=== PATIENT | male | born 1970 | race Caucasian/White ===

== ENCOUNTER 2019-07-14 20:03 | Emergency (ER) | payer OTHER, SELFPAY ==
[2019-07-14 20:07] VITALS: BP 181/108; PULSE 123; RESP 16; TEMP 36; O2SAT 100
--- NOTE | 2019-07-14 20:10 | ED.SKABFB ---
HPI - Skin/Abscess/Foreign Bdy General Chief complaint: Skin/Abscess/Foreign Body Stated complaint: abcess Time Seen by Provider: 07/14/19 20:07 Source: patient and RN notes reviewed Mode of arrival: ambulatory Limitations: no limitations History of Present Illness HPI narrative: Pt is a 49 y/o male presenting to the ED c/o wound. Pt reports he noticed a red bump on his rt thigh earlier today. Pt states he called his PCP who prescribed the pt Doxycycline. Pt notes the swelling and erythema worsened on his rt thigh as of the past few hrs. Pt states he has developed an abscess in his leg previously which worsened rapidly. Pt states he has Hx's of Pre-DM and HTN. Pt denies fever, chills, N/V, cough, congestion, rhinorrhea, or dysuria. Onset (ago): unknown (Earlier today) Location: RLE (Rt thigh) Associated symptoms: other (Rt thigh erythema; Rt thigh swelling) Related Data Home Medications Medication Instructions Recorded Confirmed testosterone 20.25 mg/1.25 gram 2 pump TOPICAL DAILY 02/26/19 (1.62 %) transdermal gel pump Allergies Allergy/AdvReac Type Severity Reaction Status Date / Time SHELLFISH Allergy Mild SWEATING, Uncoded 07/14/19 20:10 FAINT,NAUSEA. JAYDA. CONTRAST FOR CT SCAN Review of Systems Review of Systems: All systems reviewed & are unremarkable except as noted in HPI and below Constitutional: Constitutional: Denies chills and Denies fever(s) ENT: Denies nasal congestion and Denies other (Rhinorrhea) Respiratory: Respiratory: Denies cough Gastrointestinal: Gastrointestinal: Denies nausea and Denies vomiting Genitourinary: Genitourinary: Denies dysuria Integumentary/Breasts: Skin/Breast: Reports swelling (Rt thigh), Reports erythema (Rt thigh) and Reports wounds (Rt thigh) [facility] Past Medical History Medical History (Updated 07/14/19 @ 21:26 by Tin Cameron MD) Abscess Anxiety with depression Benign essential hypertension Body mass index (BMI) 40.0-44.9, adult Colon cancer screening DM type 2 (diabetes mellitus, type 2) Encounter for routine adult health examination without abnormal findings Encounter for special screening examination for neoplasm of prostate Erectile dysfunction Follow up Hyperlipidemia On longterm drug therapy CARMINE on CPAP Surgical History Surgical History (Updated 07/14/19 @ 20:18 by Irving Singleton) No significant past surgical history Social History Social History Smoking status: Never smoker Alcohol intake: never Course Vital Signs Vital signs: Vital Signs Temperature 36.0 C L 07/14/19 20:07 Pulse Rate 123 H 07/14/19 20:07 Respiratory Rate 16 07/14/19 20:07 Blood Pressure 181/108 H 07/14/19 20:07 Pulse Oximetry 100 07/14/19 20:07 Temperature 36.0 C L 07/14/19 20:07 Pulse Rate 123 H 07/14/19 20:07 Respiratory Rate 16 07/14/19 20:07 Blood Pressure 181/108 H 07/14/19 20:07 Pulse Oximetry 100 07/14/19 20:07 Procedures Abscess I/D lower extremity: Side (if applicable): right Local Anesthetic: lidocaine 1% and with epi Amount of anesthesia used (mL): 4 Amount of fluid expressed (mL): 1 Irrigation: Yes Packing used?: none I&D Results: Pus MDM - Skin/Abscess/Foreign Bdy Differential Diagnosis Differential diagnosis: Likely abscess of skin or subcutaneous tissue Medical Records Attestation: I reviewed the patient's medical records. Lab Data Attestation: I reviewed the patient's lab results. Labs: Lab Results 07/14/19 Range/Units 21:06 POC Capillary Glucose 92 (65-105) mg/dl Discharge Plan Discharge Clinical Impression: Abscess Patient Disposition: Home, Self-Care Condition: Stable Instructions: Abscess (ED) Prescriptions: No Action (DME) OneTouch Verio Strip See Rx Instructions .ROUTE .MEDSUPPLY Qty: 100 RF: 5 (DME) lancets 30 gauge misc See Rx Instructions
--- NOTE | 2019-07-14 20:33 | PC.NURSE ---
at bedside preparing for I&D of wound.
[2019-07-14] MEDS: LIDO 1%/EPINEPHRINE 1:100,000 20 ML VIAL 5 ML INFILTRATE (20:37)
[2019-07-14 21:10] LABS: Glucose Point of Care 92 (65-105)
--- NOTE | 2019-07-25 21:09 | PC.NURSE ---
LATE ENTRY This note is being entered to document information to the patient's record. The following information was omitted on [pt wound on right inner thigh not left inner thigh], by [maureen zaman rn].
== END 2019-07-14 21:40 | disposition home or self-care (01) ==
PROVIDERS: Emergency Provider Emergency Medicine; PCP Internal Medicine
DX: L02.415 Cutaneous abscess of right lower limb (principal); F41.8 Other specified anxiety disorders; I10 Essential (primary) hypertension; E11.9 Type 2 diabetes mellitus without complications; N52.9 Male erectile dysfunction, unspecified; E78.5 Hyperlipidemia, unspecified; Z79.84 Long term (current) use of oral hypoglycemic drugs
CPT/HCPCS: 10060; 99282

== ENCOUNTER 2019-09-10 14:51 | Outpatient (CLI) | payer OTHER, SELFPAY | END 2019-09-10 14:52 | disposition home or self-care (01) | LOC: ANHLAB 14:53 | PROVIDERS: PCP Internal Medicine; Visit Provider Internal Medicine | DX: L02.91 Cutaneous abscess, unspecified (principal) | CPT/HCPCS: 87081 ==

== ENCOUNTER 2021-03-04 08:39 | Outpatient (CLI) | payer OTHER, SELFPAY ==
--- NOTE | ~2021-03-04 | XR_ITS ---
EXAMINATION: XR hip RT min 2V DATE: 03/04/2021 08:58 INDICATION: Right hip pain TECHNIQUE: Two views of the right hip were obtained. COMPARISON: None. FINDINGS: Bone alignment is normal. There is no fracture. There is mild to moderate osteoarthritis of the hip. The soft tissues are unremarkable. IMPRESSION: 1. Osteoarthritis without acute osseous abnormality. Reviewed, dictated and finalized at location B. NDMAN
== END 2021-03-04 08:40 | disposition home or self-care (01) ==
LOC: ANHIMG 08:44
PROVIDERS: PCP Internal Medicine; Visit Provider Internal Medicine
DX: M16.11 Unilateral primary osteoarthritis, right hip (principal)
CPT/HCPCS: 73502

== ENCOUNTER 2022-01-10 10:08 | Outpatient (CLI) | payer OTHER, SELFPAY ==
--- NOTE | ~2022-01-10 | XR_ITS ---
EXAM: XR ankle RT min 3V, XR foot RT standing 2V DATE: 01/10/2022 10:42 HISTORY: M25.571 - Pain in right ankle and joints of right foot. NKI . COMPARISON: None available. FINDINGS: Normal mineralization. No fracture or dislocation. No lytic or blastic lesion. Moderate de generative change of the tibiotalar joint and multiple midfoot joints. Mild degenerative change at th e first MTP and first interphalangeal joint. Marked Achilles and plantar enthesopathy. Calcification in peroneal tendons. Large os cuboidium. No erosion or periosteal change. Soft tissues within normal limits. IMPRESSION: No acute osseous finding in the right ankle or foot. Degenerative changes detailed above. Reviewed, dictated and finalized at location K. IMPRESSION: No acute osseous finding in the right ankle or foot. Degenerative c hanges detailed above.
== END 2022-01-10 10:09 | disposition home or self-care (01) ==
PROVIDERS: PCP Internal Medicine; Visit Provider Internal Medicine
DX: M25.571 Pain in right ankle and joints of right foot (principal); M79.671 Pain in right foot
CPT/HCPCS: 73610; 73620

== ENCOUNTER 2023-01-25 16:11 | Emergency (ER) | payer OTHER, SELFPAY ==
[2023-01-25 16:20] VITALS: BP 137/68; PULSE 70; RESP 16; TEMP 36.7; O2SAT 98
--- NOTE | 2023-01-25 16:20 | ED.SKABFB ---
HPI - Skin/Abscess/Foreign Bdy General Chief complaint: Skin/Abscess/Foreign Body Stated complaint: Rt Inner Thigh Irritation Time Seen by Provider: 01/25/23 16:24 Source: patient and RN notes reviewed Mode of arrival: ambulatory Limitations: no limitations History of Present Illness HPI narrative: 52-year-old male presents with concern for redness on his right inner thigh. He reports history of having abscesses drained in that area. He reports he noticed these areas yesterday while traveling and 1 of them taking care of because he is going to be traveling again tomorrow. He denies fever, aches, chills, sweats. Denies drainage from the area MD complaint: abscess/boil Related Data Allergies Allergy/AdvReac Type Severity Reaction Status Date / Time SHELLFISH Allergy Mild SWEATING, Uncoded 07/14/22 07:43 FAINT,NAUSEA. JAYDA. CONTRAST FOR CT SCAN Review of Systems Review of Systems: CONSTITUTIONAL: Denies malaise, chills, sweats, or fever. EYES: Denies redness, or discharge. CARDIOVASCULAR: Denies chest pain, palpitations, or edema. RESPIRATORY: Denies cough or dyspnea. SKIN: Reports 2 red tender areas on the right inner thigh MUSCULOSKELETAL: Denies joint pain or myalgia. NEUROLOGIC: Denies headache. All systems reviewed & are unremarkable except as noted in HPI and below PMFSH Past Medical History Medical History Abnormal finding of blood chemistry Abscess Acute dysfunction of right eustachian tube Anxiety with depression Balanitis Benign essential hypertension BMI 37.0-37.9, adult BMI 38.0-38.9,adult BMI 39.0-39.9,adult Body mass index (BMI) 40.0-44.9, adult BPPV (benign paroxysmal positional vertigo) Change in mole Colon cancer screening Cough DJD (degenerative joint disease) DM type 2 (diabetes mellitus, type 2) Elbow pain, left Encounter for preventive health examination Encounter for routine adult health examination with abnormal findings Encounter for routine adult health examination without abnormal findings Erectile dysfunction Follow up Hx of colonic polyps Hyperlipidemia Hypersomnia On terminal superintendent drug therapy CARMINE on CPAP Prostate cancer screening Right foot pain SOB (shortness of breath) Stress Vitamin D deficiency Surgical History Surgical History No significant past surgical history Social History Social History Smoking status: Former smoker Second hand tobacco smoke exposure: No Alcohol intake: never Lack of Transportation: No Lack of Food: Never True Current Housing: I Have Housing Concerned About Future Housing: No Difficulty Paying Gas/Electric Bills: No Difficulty Paying for Meds: No Currently Unemployed: No Education: Master's Degree or Higher Difficulty w/ Childcare or Family Care: No Living arrangements: with family Occupation/Education: occupation Gender identity (if verbalized by the patient): Male Sexual Orientation (if Verbalized by the Patient): Straight or Heterosexual Comments At time of signature, agree with nursing past medical, surgical, social and family history. There is no relevant family history pertinent to the presenting complaint Exam Narrative: GENERAL: Well-appearing, well-nourished, and in no acute distress. HEAD: Normocephalic, atraumatic. EYES: PERRLA, conjunctivae clear, and EOMI. ENT: Mucous membranes moist. Oropharynx without edema, erythema or lesions. NECK: Supple. No lymphadenopathy CHEST: Clear to auscultation. No respiratory distress. HEART: Regular rate and rhythm. SKIN: Warm, dry. Two palpable erythematous indurated nonfluctuant raised areas noted on the right inner thigh NEURO: Alert and oriented x3. PSYCH: Normal mood and affect Course Course Emergency Course: Patient is aware of diagnosis, understands and agree
== END 2023-01-25 16:37 | disposition home or self-care (01) ==
PROVIDERS: Emergency Provider Nurse Practitioner; PCP Internal Medicine
DX: L02.425 Furuncle of right lower limb (principal); E78.5 Hyperlipidemia, unspecified; I10 Essential (primary) hypertension; E11.9 Type 2 diabetes mellitus without complications; Z87.891 Personal history of nicotine dependence
CPT/HCPCS: 99213; G0463

== ENCOUNTER 2024-01-22 08:20 | Outpatient (CLI) | payer OTHER, SELFPAY ==
--- NOTE | ~2024-01-22 | XR_ITS ---
XR wrist RT min 3V Ordering provider: Oscar Nieto MD History: . GOLF INJURY. ULNAR SIDE PAIN. . Comparison: None. FINDINGS: BONES: No acute fracture or dislocation. No definite scaphoid fracture. JOINT SPACES: Normal. SOFT TISSUES: Normal. IMPRESSION: No acute osseous abnormality right wrist. Reviewed, dictated and finalized at location A.
== END 2024-01-22 08:21 | disposition home or self-care (01) ==
LOC: ANHIMG 08:22
PROVIDERS: PCP Internal Medicine; Visit Provider Internal Medicine
DX: S69.91XA Unspecified injury of right wrist, hand and finger(s), initial encounter (principal); X58.XXXA Exposure to other specified factors, initial encounter; Y93.53 Activity, golf
CPT/HCPCS: 73110

== ENCOUNTER 2024-06-04 08:57 | Outpatient (CLI) | payer OTHER, SELFPAY ==
--- NOTE | ~2024-06-04 | XR_ITS ---
Clinical Indication: Cough PA and lateral views of the chest: Comparison: None Findings: The lungs are clear, without evidence of focal consolidation or pleural effusion. Cardiome diastinal silhouette is within normal limits. Bones and soft tissues are unremarkable. Impression: Normal chest. Reviewed, dictated and finalized at [facility]. WORKER FOREMAN Impression: Normal chest.
--- OUTSIDE RECORDS SUMMARY | 2024-06-04 09:38 | XMS_ITS ---
Author Organization [facility], [facility] Address [address] [place] [address] [address]. [address]rell [address] [place] [address] Care Team Providers Care Air Force Senior Officer Name Role Phone Emilia CONTRERAS, Oscar Primary Care Provider Unavailab Donta Loza Unavailable [phone] REASON FOR VISIT 2012 [facility] Records Encounters Encounter Location Date Provider Diagnosis [facility] [address] [place] [address] Dr. Harrell [address] [place] [address] 02/16/2024 Donta Strauss Plan Of Treatment No Information Progress Notes * Isaac CLAUDIO DDOB:1970 (53 yo M)Acc No.[id number]:02/16/2024 Patient: Zulema Isaac harvey :1970 A ge:53 Y S ex:Male Address:[address] [place] [id number] * true * Date: Generated for Printi ng/Faxing/eTransmitting on: 0 06/04/2024 09:37 AM RN SPINE
--- OUTSIDE RECORDS SUMMARY | 2024-06-04 09:38 | XMS_ITS | Patient Health Record ---
Author Organization [facility] Address [address] [facility] [address] [place] [address] Care Team Providers Care Keeper Helper Name Role Phone Emilia CONTRERAS, Oscar Primary Care Provider Unavail Donta Loza Unavailable [phone] Results Component Value Reference Range Notes Pathology Report Reviewed date:03/25/2024 04:33:28 PM Interpretation: Performing Lab: Notes/Report: DIAGNOSES A. Hepatic Flexure, Colon Polyp, Polypectomy: -Tubular adenoma. B. Descending Colon Polyp, Polypectomy: -Tubular adenoma. CLINICAL HISTORY Screening for colorectal malignant neoplasm. Two 5 to 7 mm polyps in the descending colon and at the hepatic flexure. GROSSING DESCRIPTION A. The specimen is received in a Formalin-filled container labeled with the patient's name and designated Hepatic Flexure, Colon Polyp It contains multiple fragments of valadez tissue that measure from <1x1x1 to 3x1x1 mm. The specimen was entirely submitted into a single cassette for processing. B. The specimen is received in a Formalin-filled container labeled with the patient's name and designated Descending Colon Polyp It contains multiple fragments of valadez tissue that measure from 1x1x1 to 11x6x1 mm - serially sectioned. The specimen was entirely submitted into a single cassette for processing. MICROSCOPIC DESCRIPTION Complete 100 microscopic examination is performed. The findings are included in the diagnosis rendered. Specimens A and B were evaluated with H&E stain. Textual Pathology Report SEE NOTES Reason For Referral No Information Medications Medication SIG (Take, Route, Fr equency, Duration) Notes Start Date End Date Status Suflave 178.7 GM ML Orally twice a da y, Follow Physician Instructions. for 1 days 01/26/2024 Active Problems Problem Type SNOMED Code ICD Code Onset Dates Problem Status W/U Status Risk Notes Problem 926287237 History of colonic polyps (Z86.010) Active confirmed Problem 21393274 Vitamin D deficiency (E55.9) Active confirmed Encounters Encounter Location Date Provider Diagnosis [facility] [address] [place] [address] 03/18/2024 [facility] Colon cancer screening Z12.11 and Benign colon polyp K63.5 [facility], [address] [place] [address] 01/22/[address] [place] [address] 01/22/[address] [place] [address] 01/22/[address] Harrell [address] [place] [address] 01/22/2024 [facility], [address] [place] [address] 02/16/2024 [facility] Assessments Encounter Date Diagnosis (ICD Code) Assessment Notes Treatment Notes Treatment Clinical Notes Section Notes 03/18/2024 Colon cancer screening (ICD-10 - Z12.11) 03/18/2024 Benign colon polyp (ICD-10 - K63.5) Plan Of Treatment Future Test Test Name Order Date VITAMIN D,25-OH,TOTAL,IA 05/06/2019 Insurance Providers Payer Name Payer Address Payer Phone Subscriber Number Group Number Insured Name Patient Relationship to Insured Coverage Start Date Coverage End Date [facility] Choice/ choice Plus E2 [address] [place] [phone] [id number] Isaac Osborne Self - patient is the insured Medical (General) History Medical History History ICD Code Sleep Apnea Hypertension GERD Surgical History Surgery Date(Month/Year) Hernia Repair
--- OUTSIDE RECORDS SUMMARY | 2024-06-04 09:38 | XMS_ITS | Clinical Summary ---
Author Organization [facility] Address [address] [place] [address] Care Team Providers Care Oil Furnace Installer Name Role Phone Oscar Nieto MD Primary Care Provider [phone] Allergies No known active allergies Medications albuterol sulfate HFA 108 (90 Base) MCG/ACT inhaler Inhale 2 puffs into the lungs every 6 (six) hours as needed for Wheezing. 6.7 g 02/28/2022 Active Immunizations Name Administration Dates Next Due MODERNA COVID-19 (12+) MRNA, LNP-S, PF, 100 MCG/ 0.5 ML DOSE 06/24/2020,05/27/2020 Social History Tobacco Use Types Packs/Day Years Used Date Smoking Tobacco: Never Assessed Alcohol Use Standard Drinks/Week Comments Never 0 (1 standard drink = 0.6 oz pur e alcohol) Sex and Gender Information Value Date Recorded Sex Assigned at Not on file Legal Sex Male 1:15 PM CDT Gender Identity Not on file Sexual Orientation Not on file Last Filed Vital Signs Vital Sign Reading Time Taken Comments Blood Pressure 159/87 02/28/2022 7:43 AM CORPORATE RECYCLING MANAGER Pulse 89 02/28/2022 7:43 AM CORPORATE RECYCLING MANAGER Temperature 36.9 C (98.4 F) 02/28/2022 7:43 AM CORPORATE RECYCLING MANAGER Respiratory Rate 20 02/28/2022 7:43 AM CORPORATE RECYCLING MANAGER Oxygen Saturation 94% 02/28/2022 7:43 AM CORPORATE RECYCLING MANAGER Inhaled Oxygen Concentration - - Weight - - Height - - Body Mass Index - - Plan of Treatment Health Maintenance Due Date Last Done Comments Colorectal Cancer Screening Colonoscopy (10 Years) 1971 Annual Physical 1974 Hepatitis C 1989 DTaP, Tdap and Td Vaccines ( 1 - Tdap) 1990 Hepatitis B Vaccines (1 of 3 - 19+ 3-dose series) 1990 Zoster Vaccines (1 of 2) 2021 COVID-19 Vaccine (3 - 2023-2 5 season) 2023 06/24/2020, 05/27/2020 Influenza Adult (#1) 2024 Meningococcal B Vaccine Aged Out No l onger eligible based on patient's age to complete this topic Meningococcal Vaccine Aged Out No henry theodora eligible based on patient's age to complete this topic Pneumococcal Vaccine: Pediatrics (0 to 5 Years) and At-Risk Patients (6 to 64 Years) Aged Out No longer eligible b ased on patient's age to complete this topic RSV Immunizations Under 20 Months Aged Out No longer eligible b ased on patient's age to complete this topic Insurance [facility] Care Teams Oil Furnace Installer Relationship Specialty Start Date End Date Oscar Nieto MD [address] [place] [address] PCP - General INTERNAL MEDICINE 09/11/19
--- OUTSIDE RECORDS SUMMARY | 2024-06-04 09:38 | XMS_ITS ---
Author Organization [facility], [facility] Address [address] [place] [address] Dr. Harrell [address] [place] [address] Care Team Providers Care Lens Coater Name Role Phone Emilia CONTRERAS, Oscar Primary Care Provider Unavailab Donta Loza Unavailable [phone] REASON FOR VISIT 03/18 weight loss med/colon Encounters Encounter Location Date Provider Diagnosis [facility] [address] [place] [address] Dr. Harrell [address] [place] [address] 01/22/2024 Donta Strauss Plan Of Treatment No Information Progress Notes * Isaac CLAUDIO DDOB:1970 (53 yo M)Acc No.[id number]:01/22/2024 Patient: Zulema Isaac harvey :1970 A ge:53 Y S ex:Male Address:[address] [place] [address] * true * Date: Generated for Printi ng/Faamericag/eTransmitting on: 0 06/04/2024 09:37 AM CHEMICAL TESTER
--- OUTSIDE RECORDS SUMMARY | 2024-06-04 09:38 | XMS_ITS ---
Author Organization [facility] Address [address] [facility] [facility] [address] [place] [address] Care Team Providers Care Assembler Cards And Announcements Name Role Phone Emilia CONTRERAS, Oscar Primary Care Provider Unavailab Donta Loza Unavailable [phone] REASON FOR VISIT Screening hxcp mounjaro 6ft1 270 Medications Medication SIG (Take, Route, Fr equency, Duration) Notes Start Date End Date Status Suflave 178.7 GM ML Orally twice a da y, Follow Physician Instructions. for 1 days 01/26/2024 Active Encounters Encounter Location Date Provider Diagnosis [facility] [address] [place] [address] 03/18/2024 Donta Strauss Colon cancer screening Z12.11 and Benign colon polyp K63.5 Assessments Encounter Date Diagnosis (ICD Code) Assessment Notes Treatment Notes Treatment Clinical Notes Section Notes 03/18/2024 Colon cancer screening (ICD-10 - Z12.11) 03/18/2024 Benign colon polyp (ICD-10 - K63.5) Plan Of Treatment Next Appt Details Follow Up: * Colonoscopy 5 y ear, Reason: Progress Notes * Isaac CLAUDIO DDOB:1970 (53 yo M)Acc No.[id number]:03/18/2024 Patient: Zulema Isaac DOSHI Provider: Juno Strauss M.D. :1970 A ge:53 Y S ex:Male Date:03/18/2024 Address[facility] [place] [address] Pcp:Oscar Nieto MD Subjective: * Chief Complaints: * S creening hxcp carlitosunlurdes 6ft1 270 * Medical History: * Surgical History: H ernia Repair * Hospitalization/Major Diagno stic Procedure: * Medications: T akingSuflave 178.7 GM Solution Reconstituted ML Orally twice a day, Follow Physician Instructions. Taking Suflave 178.7 GM Solution Reconstituted ML Orally twice a day, Follow Physician Instructions. Objective: * Vitals: Assessment: * Assessment: 1. C olon cancer screening - Z12.11 2 . B enign colon polyp - K63.5 ? Plan: * Treatment: * Procedure Codes: 4 5385 LESION REMOVAL COLONOSCOPY, Modifiers: 33 * Follow Up: * Colonoscopy 5 year * Images: * EY ANALYST Sign off status: Completed true * Provider: Juno Strauss M.D. Date: 05/18/2023 Generated for Edd peterson/Patti/Khushiitting on: 0 06/04/2024 09:37 AM SURVEY ANALYST
--- OUTSIDE RECORDS SUMMARY | 2024-06-04 09:38 | XMS_ITS | Clinical Summary ---
Author Organization [facility] Care Team Providers Care Tag Press Operator Name Role Phone Unavailable Primary Care Provider Unavailabl e Social History Tobacco Use Types Packs/Day Years Used Date Smoking Tobacco: Never Assessed Sex and Gender Information Value Date Recorded Sex Assigned at Not on file Legal Sex Male 8:00 AM CORPORATE COMMUNICATIONS SPECIALIST Gender Identity Not on file Sexual Orientation Not on file Plan of Treatment Health Maintenance Due Date Last Done Comments Hepatitis C Virus (HCV) Screening 1970 TdaP Immunization 1971 Hepatitis B Immunization (1 of 3 - 19+ 3-dose series) 1990 Colonoscopy 2016 Colorectal Cancer Screening 2016 Cologuard 2021 Immunochemical Fecal Occult Blood 2021 Pneumococcal Immunization (5 0+ years) (1 of 1 - PCV) 2021 Zoster Immunization (1 of 2) 2021 Influenza Immunization (#1) 2023 SARS-COV-2 Immunization ( - season) 2023 Respiratory Syncytial Virus (RSV) Immunization (Adult) (1 - 1-dose 75+ series) 2046 Meningococcal Immunization (ACWY) Aged Out No longer eligible based on patient's age to complete this topic Pneumococcal Immunization Combined Aged Out No longer eligible based on patient's age to complete this topic Rotavirus Immunization Aged Out No lo nger eligible based on patient's age to complete this topic
== END 2024-06-04 08:58 | disposition home or self-care (01) ==
LOC: ANHIMG 08:59
PROVIDERS: PCP Internal Medicine; Visit Provider Internal Medicine
DX: R05.9 Cough, unspecified (principal)
CPT/HCPCS: 71046